=== PATIENT | female | born 1965 | race Caucasian/White ===

== ENCOUNTER → 2016-11-14 | Outpatient (CLI) | payer BC ==
[~2016-11-14] MED LIST: ALBUAER2 INH; AMT50 PO; AMXUNK; ATV5X PO; BSP5 PO; FEXO1TAB49 PO; FLUT230A INH; MISCCAP80 PO; MULT-506 PO; NXM/40 PO; RANI150T2 PO; TRCUNK PO; [UNRECOGNIZED DRUG - CODE] PO
--- NOTE | 2016-11-14 09:44 | DIAGNOSTIC IMAGING REPORT ---
BILIARY ULTRASOUND CLINICAL HISTORY: ELEVATED LFT'S COMPARISON STUDY: No previous studies for comparison. FINDINGS: The pancreas appears normal as visualized. The liver is of increased echogenicity, a nonspecific finding most often seen in hepatic steatosis. There are no focal hepatic masses. There is no ductal dilatation. The common bile duct measures 5 mm. There is no right-sided hydronephrosis. The gallbladder surgically absent. IMPRESSION: 1. Surgically absent gallbladder 2. No ductal dilatation 3. Mild hepatomegaly. Increased hepatic echogenicity, consistent with hepatic steatosis. Electronically signed by: Nitish Toro M.D. 11/14/2016 9:43 AM Dictated Date/Time: 11/14/2016 9:42 AM
== END | disposition home or self-care (01) ==
LOC: C.ULTR 09:09
PROVIDERS: ATTEND Family Medicine
DX: R79.89 Other specified abnormal findings of blood chemistry (principal); R16.0 Hepatomegaly, not elsewhere classified

== ENCOUNTER → 2017-09-15 | Outpatient (CLI) | payer BC ==
--- NOTE | 2017-09-16 16:00 | MAMMOGRAPHY REPORT ---
BILATERAL DIGITAL SCREENING MAMMOGRAM TOMOSYNTHESIS WITH CAD: 09/15/2017 CLINICAL HISTORY: Routine screening examination. TECHNIQUE: Breast tomosynthesis in addition to standard 2D mammography was performed. Current study was also evaluated with a Computer Aided Detection (CAD) system. COMPARISON: Comparison is made to exams dated: 09/12/2016 mammogram, 03/26/2016 mammogram, 09/19/2015 mammogram, 09/10/2015 mammogram, 09/08/2014 mammogram, and 09/07/2013 mammogram - [facility]. BREAST COMPOSITION: There are scattered areas of fibroglandular density in both breasts. FINDINGS: The parenchymal pattern is unchanged. No developing mass, architectural distortion or clus ter of suspicious microcalcifications is seen in either breast. IMPRESSION: ACR BI-RADS CATEGORY 2: BENIGN There is no mammographic evidence of malignancy. A 1 year screening mammogram is recommended. The pa tient will receive written notification of the results. Approximately 10% of breast cancers are not detected with mammography. A negative mammographic report should not delay biopsy if a clinically suggestive mass is present. Carri Winter M.D. ay/:09/15/2017 17:43:24 Steaming Machine Operator: Marci HERNANDEZ(Cal)(Andrew), [facility] letter sent: Normal 1/2 BI-RADS Code: ACR BI-RADS Category 2: Benign
== END | disposition home or self-care (01) ==
LOC: C.MAMM 09:29
PROVIDERS: ATTEND Obstetrics & Gynecology
DX: Z12.31 Encounter for screening mammogram for malignant neoplasm of breast (principal)

== ENCOUNTER → 2018-05-11 | Day surgery (SDC) | payer OTHER ==
[~2018-05-11] VITALS: Ht 160 cm; Wt 111.0 kg
[~2018-05-11] MED LIST changes: -AMXUNK; +AMXUNK PO; +ATV/1 PO; +DIPH-416 PO; +FLUO0.0566 TOP; +LISI-729 PO; +METHPOW7 PO; +METRONIDAZOLE TOP; +PRAV20TA PO; +SCOP1.5D2 TD; +USTE45IN IM; +[UNRECOGNIZED DRUG - OTHER] TOP; +ketoconazole cream TOP
[2018-05-11 08:26] VITALS: BP 148/83; PULSE 73; TEMP 36.9; O2SAT 97; Ht 160 cm; Wt 111.0 kg
== END | disposition home or self-care (01) ==
LOC: C.MTU 08:08
PROVIDERS: ATTEND Internal Medicine Gastroenterology
DX: R19.7 Diarrhea, unspecified (principal)